=== PATIENT | female | born 1980 | race Caucasian/White ===

== ENCOUNTER 2020-05-02 19:33 | Emergency (ER) | payer MEDICAID ==
[~2020-05-02] VITALS: Ht 165.1 cm; Wt 108.9 kg
[2020-05-02 20:25] LABS: Basophils # (auto) 0.1 10 ^3/uL (0-0.2); Basophils % (auto) 0.9 % (0.0-2.0); Eosinophils # (auto) 0.1 10 ^3/uL (0-0.8); Eosinophils % (auto) 1.3 % (0.0-7.0); Hematocrit 42.7 % (36.0-46.0); Neutrophils # (auto) 4.7 10 ^3/uL (1.6-8.6); Nucleated Red Blood Cells % 0.1 %; Red Blood Cells 3.82 10^6/uL (4.0-5.20)
[2020-05-02 20:27] LABS: Hemoglobin 15.2 g/dL (12.2-16.2); Lymphocytes # (auto) 2.5 10 ^3/uL (0.4-5.4); Lymphocytes % (auto) 31.9 % (10.0-50.0); Mean Corpuscular Hemoglobin 39.6 pg (28.0-32.0); Mean Corpuscular Hgb Conc. 35.5 g/dL (32.0-36.0); Mean Corpuscular Volume 111.5 fL (80.0-100.0); Monocytes # (auto) 0.6 10 ^3/uL (0-1.3); Monocytes % (auto) 6.9 % (0.0-12.0); Platelet Count (auto) 269 10^3/uL (140-450); Red Cell Distribution Width 14.2 % (11.8-14.3)
[2020-05-02 20:37] LABS: INR 1.03 (0.9-1.15); Partial Thromboplastin Time 26.7 sec (23.0-31.2)
[2020-05-02 20:40] LABS: Albumin 3.9 g/dL (3.4-5.0); BUN/Creatinine Ratio 10.5; Calcium 9.1 mg/dL (8.5-10.1); Potassium 3.9 mmol/L (3.5-5.1)
[2020-05-02 20:43] LABS: Bilirubin, Total 0.4 mg/dL (0.2-1.0); Total Protein 8.4 g/dL (6.4-8.2)
[2020-05-03 04:00] VITALS: BP 100/73
[2020-05-03 04:18] LABS: Urine Bacteria NONE SEEN /hpf (None Seen); Urine Blood 3+ /uL (Negative); Urine Mucus FEW (None Seen); Urine Specific Gravity 1.031 (1.001-1.035); Urine WBC 500 /hpf (0 - 5)
== END 2020-05-03 04:55 | disposition home or self-care (01) ==
LOC: ER 19:33
DX: N93.8 Other specified abnormal uterine and vaginal bleeding (principal)
CPT/HCPCS: 36415; 76856; 80053; 81001; 84702; 85025; 85610; 85730; 86850; 86900; 86901

== ENCOUNTER 2021-04-13 14:55 | Inpatient (IN) | payer MEDICAID, OTHER ==
[~2021-04-13] VITALS: Ht 165.1 cm; Wt 90.4 kg
[2021-04-13 16:00] LABS: Basophils # (auto) 0.1 10 ^3/uL (0-0.2); Eosinophils # (auto) 0 10 ^3/uL (0-0.8); Lymphocytes # (auto) 1.7 10 ^3/uL (0.4-5.4); Mean Corpuscular Hemoglobin 45.1 pg (28.0-32.0); Monocytes # (auto) 0.5 10 ^3/uL (0-1.3); Neutrophils # (auto) 7.5 10 ^3/uL (1.6-8.6); Nucleated Red Blood Cells % 0.1 %; White Blood Cell 9.9 10^3/uL (4.4-10.8)
[2021-04-13 16:03] LABS: Basophils % (auto) 1.5 % (0.0-2.0); Eosinophils % (auto) 0.2 % (0.0-7.0); Hematocrit 28.9 % (36.0-46.0); Hemoglobin 10.1 g/dL (12.2-16.2); Lymphocytes % (auto) 16.9 % (10.0-50.0); Mean Corpuscular Hgb Conc. 34.9 g/dL (32.0-36.0); Mean Corpuscular Volume 129.4 fL (80.0-100.0); Monocytes % (auto) 5.5 % (0.0-12.0); Neutrophils % (auto) 75.9 % (37.0-80.0); Red Blood Cells 2.23 10^6/uL (4.0-5.20); Red Cell Distribution Width 19.2 % (11.8-14.3)
[2021-04-13 16:21] LABS: Albumin 2.3 g/dL (3.4-5.0); BUN/Creatinine Ratio 5.3; Calcium 8.7 mg/dL (8.5-10.1)
[2021-04-13 16:23] LABS: Lactic Acid w/Reflex 3.9 mmol/L (0.4-2.0)
[2021-04-13 16:25] LABS: Bilirubin, Total 10.7 mg/dL (0.2-1.0); Total Protein 8.1 g/dL (6.4-8.2)
[2021-04-13 16:26] LABS: INR 1.63 (0.9-1.15); Partial Thromboplastin Time 31.9 sec (23.6-33.0)
[2021-04-13 16:51] LABS: Potassium 2.8 mmol/L (3.5-5.1)
[2021-04-13] MEDS ORDERED: POTASSIUM EFFERVESENT TAB 25 MEQ PO ONE (17:00)
[2021-04-13] MEDS ORDERED: ENOXAPARIN SOD 100 MG/1 ML SYRINGE SC ONE (17:00)
[2021-04-13 22:10] LABS: Urine Bacteria MANY /hpf (None Seen); Urine Blood TRACE /uL (Negative); Urine Mucus FEW (None Seen); Urine Specific Gravity 1.022 (1.001-1.035); Urine WBC 18 /hpf (0 - 5)
[2021-04-14] MEDS ORDERED: TEMAZEPAM 15 MG CAP PO PRN (03:45)
[2021-04-14] MEDS ORDERED: ONDANSETRON HCL 4 MG/2 ML VIAL IV PRN (03:45)
[2021-04-14 04:42] LABS: Calcium 8.6 mg/dL (8.5-10.1)
[2021-04-14] MEDS: cefTRIAXone 1GM/50ML D5W 50 ML IV SCH (04:58)
[2021-04-14 05:06] LABS: Potassium 2.8 mmol/L (3.5-5.1)
[2021-04-14] MEDS ORDERED: POTASSIUM CHL 20 Meq TABLET PO ONE ×2 (06:00→18:45)
[2021-04-14] MEDS: PANTOPRAZOLE 40 MG TAB PO SCH (08:30)
[2021-04-14] MEDS ORDERED: ASPirin 81 mg TAB PO SCH (10:00)
[2021-04-14] MEDS: MULTIPLE VITAMIN TAB PO SCH (11:45)
[2021-04-14] MEDS: LORazepam 2MG/ML-1ML VIAL IV PRN ×2 (12:25→20:47)
[2021-04-14] MEDS: chlordiazePOXIDE HCL 25 MG CAP PO SCH ×3 (12:25→23:44)
[2021-04-14] MEDS: THIAMINE HCL 100 MG TAB PO SCH (12:25)
[2021-04-14 14:31] LABS: Potassium 2.9 mmol/L (3.5-5.1)
[2021-04-14] MEDS ORDERED: POTASSIUM CHLORIDE 20 MEQ, LIDOCAINE 1% (LOCAL ANESTH.) 2 ML in SODIUM CHL 0.9% 100 ML IV ONE (14:45)
[2021-04-14] MEDS ORDERED: POTASSIUM EFFERVESENT TAB 25 MEQ PO ONE (15:15)
[2021-04-14] MEDS ORDERED: FOLIC ACID 1 MG TAB PO ONE (18:45)
[2021-04-14] MEDS ORDERED: MAGNESIUM OXIDE 400 MG TAB PO ONE (18:45)
[2021-04-14 20:00] VITALS: BP 107/63
[2021-04-14] MEDS: SOD CHL 0.9%/ KCL 40MEQ 1,000 ML IV SCH (20:24)
[2021-04-14 21:33] VITALS: BP 107/63
[2021-04-14] MEDS: PROPRANOLOL HCL 20 MG TAB PO SCH (21:47)
[2021-04-15 04:51] VITALS: BP 96/54
[2021-04-15] MEDS: SOD CHL 0.9%/ KCL 40MEQ 1,000 ML IV SCH ×2 (05:20→11:18)
[2021-04-15] MEDS: chlordiazePOXIDE HCL 25 MG CAP PO SCH ×3 (05:49→17:14)
[2021-04-15 07:37] LABS: Basophils # (auto) 0.1 10 ^3/uL (0-0.2); Eosinophils # (auto) 0.1 10 ^3/uL (0-0.8); Eosinophils % (auto) 0.7 % (0.0-7.0); Lymphocytes # (auto) 1.8 10 ^3/uL (0.4-5.4); Monocytes # (auto) 0.6 10 ^3/uL (0-1.3); White Blood Cell 7.7 10^3/uL (4.4-10.8)
[2021-04-15 07:40] LABS: Basophils % (auto) 0.9 % (0.0-2.0); Hematocrit 23.7 % (36.0-46.0); Hemoglobin 8.3 g/dL (12.2-16.2); Mean Corpuscular Hemoglobin 46.7 pg (28.0-32.0); Mean Corpuscular Hgb Conc. 35.2 g/dL (32.0-36.0); Mean Corpuscular Volume 132.8 fL (80.0-100.0); Monocytes % (auto) 7.9 % (0.0-12.0); Neutrophils # (auto) 5.2 10 ^3/uL (1.6-8.6); Neutrophils % (auto) 67.5 % (37.0-80.0); Nucleated Red Blood Cells % 0.2 %; Red Blood Cells 1.78 10^6/uL (4.0-5.20); Red Cell Distribution Width 19.6 % (11.8-14.3)
[2021-04-15 07:49] LABS: INR 1.71 (0.9-1.15); Partial Thromboplastin Time 33.9 sec (23.6-33.0)
[2021-04-15 07:54] LABS: Calcium 8.3 mg/dL (8.5-10.1); Potassium 3.8 mmol/L (3.5-5.1)
[2021-04-15 07:58] LABS: Lactic Acid w/Reflex 2.2 mmol/L (0.4-2.0)
[2021-04-15 08:06] LABS: BUN/Creatinine Ratio 12.1; Bilirubin, Total 7.1 mg/dL (0.2-1.0); Total Protein 7.1 g/dL (6.4-8.2)
[2021-04-15] MEDS: FOLIC ACID 1 MG TAB PO SCH (08:50)
[2021-04-15] MEDS: cefTRIAXone 1GM/50ML D5W 50 ML IV SCH (08:50)
[2021-04-15] MEDS: SPIRONOLACTONE 25 MG TAB PO SCH (08:50)
[2021-04-15] MEDS: THIAMINE HCL 100 MG TAB PO SCH (08:50)
[2021-04-15] MEDS: PROPRANOLOL HCL 20 MG TAB PO SCH ×2 (08:51→22:00)
[2021-04-15] MEDS: PANTOPRAZOLE 40 MG TAB PO SCH (08:51)
[2021-04-15] MEDS: MULTIPLE VITAMIN TAB PO SCH (08:51)
[2021-04-15 09:00] VITALS: BP 108/62
[2021-04-15] MEDS: LORazepam 2MG/ML-1ML VIAL IV PRN ×2 (11:25→21:15)
[2021-04-15 13:00] VITALS: BP 98/62
[2021-04-15 17:00] VITALS: BP 92/49
[2021-04-15 21:39] VITALS: BP 90/54
[2021-04-16] MEDS: chlordiazePOXIDE HCL 25 MG CAP PO SCH ×3 (00:13→13:06)
[2021-04-16 05:00] VITALS: BP 101/55
[2021-04-16 07:10] LABS: INR 1.67 (0.9-1.15)
[2021-04-16 07:20] LABS: Calcium 8.2 mg/dL (8.5-10.1); Potassium 4.1 mmol/L (3.5-5.1)
[2021-04-16 07:34] LABS: BUN/Creatinine Ratio 9.4
[2021-04-16 09:00] VITALS: BP 96/52
[2021-04-16] MEDS: PROPRANOLOL HCL 20 MG TAB PO SCH (10:00)
[2021-04-16] MEDS: SPIRONOLACTONE 25 MG TAB PO SCH (10:00)
[2021-04-16] MEDS: FOLIC ACID 1 MG TAB PO SCH (10:10)
[2021-04-16] MEDS: SOD CHL 0.9%/ KCL 40MEQ 1,000 ML IV SCH (10:10)
[2021-04-16] MEDS: THIAMINE HCL 100 MG TAB PO SCH (10:10)
[2021-04-16] MEDS: MULTIPLE VITAMIN TAB PO SCH (10:10)
[2021-04-16] MEDS: cefTRIAXone 1GM/50ML D5W 50 ML IV SCH (10:10)
[2021-04-16] MEDS: PANTOPRAZOLE 40 MG TAB PO SCH (10:10)
[2021-04-16 13:00] VITALS: BP 101/54
[2021-04-16 14:25] VITALS: BP 96/52
== END 2021-04-16 15:27 | disposition home or self-care (01) | DRG 280 ==
LOC: ER 14:55 → OVERFLOW 04-14 03:38 → EAST 04-14 16:23 → TELE-EAST 04-14 16:26
PROVIDERS: ADMIT Nurse Practitioner; ATTEND Internal Medicine
DX: K70.10 Alcoholic hepatitis without ascites (principal); E43 Unspecified severe protein-calorie malnutrition; D68.9 Coagulation defect, unspecified; E87.2 Acidosis; K76.6 Portal hypertension; D64.9 Anemia, unspecified; E87.6 Hypokalemia; Z20.822 Contact with and (suspected) exposure to COVID-19; K74.60 Unspecified cirrhosis of liver; N39.0 Urinary tract infection, site not specified; E66.9 Obesity, unspecified; F10.10 Alcohol abuse, uncomplicated; Y90.9 Presence of alcohol in blood, level not specified; Z71.41 Alcohol abuse counseling and surveillance of alcoholic; Z68.31 Body mass index [BMI] 31.0-31.9, adult
CPT/HCPCS: 36415; 74176; 80048; 80053; 81001; 82105; 83605; 83690; 83735; 83880; 84132; 84484; 85025; 85610; 85730; 87040; 87086; 87426; 93306; 96365; 96372; G0378; J0696; J2001

== ENCOUNTER 2021-05-03 01:45 | Inpatient (IN) | payer OTHER ==
[~2021-05-03] VITALS: Ht 165.1 cm; Wt 90.7 kg
[2021-05-03 05:16] LABS: Eosinophils # (auto) 0 10 ^3/uL (0-0.8); Hematocrit 29.7 % (36.0-46.0); Monocytes # (auto) 0.2 10 ^3/uL (0-1.3); Red Blood Cells 2.52 10^6/uL (4.0-5.20)
[2021-05-03 05:19] LABS: Basophils # (auto) 0.1 10 ^3/uL (0-0.2); Basophils % (auto) 1.5 % (0.0-2.0); Eosinophils % (auto) 0.5 % (0.0-7.0); Hemoglobin 10.3 g/dL (12.2-16.2); Lymphocytes # (auto) 0.8 10 ^3/uL (0.4-5.4); Mean Corpuscular Hemoglobin 40.9 pg (28.0-32.0); Mean Corpuscular Hgb Conc. 34.7 g/dL (32.0-36.0); Monocytes % (auto) 4.9 % (0.0-12.0); Neutrophils # (auto) 3.8 10 ^3/uL (1.6-8.6); Neutrophils % (auto) 77.1 % (37.0-80.0); Red Cell Distribution Width 19.6 % (11.8-14.3)
[2021-05-03 05:32] LABS: Albumin 2.1 g/dL (3.4-5.0); Calcium 7.8 mg/dL (8.5-10.1); Potassium 3.2 mmol/L (3.5-5.1)
[2021-05-03 05:37] LABS: Bilirubin, Total 4.7 mg/dL (0.2-1.0); Total Protein 7.3 g/dL (6.4-8.2)
[2021-05-03 05:39] LABS: Lactic Acid w/Reflex 3.1 mmol/L (0.4-2.0)
[2021-05-03] MEDS ORDERED: HYDROcodone-ACET 5/325MG TAB PO PRN (08:30)
[2021-05-03] MEDS ORDERED: ACETAMINOPHEN 500 MG TAB PO PRN (08:30)
[2021-05-03] MEDS ORDERED: ALBUTEROL SULF HFA 90MCG INH 200DOSE IN PRN (08:30)
[2021-05-03] MEDS ORDERED: NITROGLYCERIN 0.4 MG SL TAB SL PRN (08:30)
[2021-05-03] MEDS ORDERED: ONDANSETRON HCL 4 MG/2 ML VIAL IV PRN (08:30)
[2021-05-03] MEDS ORDERED: POTASSIUM CHL 20MEQ/100ML 100 ML IV SCH ×2 (08:30→08:45)
[2021-05-03] MEDS ORDERED: MORPHINE SULFATE INJECTION 2 MG/ML SYRG IV PRN (08:30)
[2021-05-03] MEDS ORDERED: DOCUSATE SOD 100 MG CAP PO PRN (08:30)
[2021-05-03] MEDS ORDERED: D5W/SOD CHLO 0.9% 1,000 ML IV SCH (08:30)
[2021-05-03] MEDS ORDERED: FUROSEMIDE 40 MG/4 ML VIAL IV ONE (08:45)
[2021-05-03] MEDS ORDERED: REMDESIVIR PER PHARMACY 0 ML IV SCH (09:00)
[2021-05-03] MEDS ORDERED: OCTREOTIDE ACETATE 500 MCG in SODIUM CHL 0.9% 99 ML IV SCH (09:00)
[2021-05-03] MEDS ORDERED: cefTRIAXone 1GM/50ML D5W 50 ML IV SCH (09:00)
[2021-05-03] MEDS ORDERED: OCTREOTIDE ACETATE 100 MCG in SODIUM CHL 0.9% 50 ML IV ONE (09:00)
[2021-05-03 09:20] VITALS: BP 114/70
[2021-05-03] MEDS ORDERED: DexAMETHasone SOD PHOS 10MG/1ML VIAL INJ IV SCH (10:00)
[2021-05-03] MEDS ORDERED: MULTIPLE VITAMIN TAB PO SCH (10:00)
[2021-05-03] MEDS ORDERED: ASCORBIC ACID 1,000 MG TAB PO SCH (10:00)
[2021-05-03] MEDS ORDERED: ZINC SULFATE 220mg CAP or TAB PO SCH (10:00)
[2021-05-03] MEDS ORDERED: BUDESONIDE (INHALATION) 180 MCG IH IN SCH (10:00)
[2021-05-03] MEDS ORDERED: FAMOTIDINE (10MG/ML) 2ML VL IV SCH (10:00)
[2021-05-03] MEDS ORDERED: CHOLECALCIFEROL (VITD3) 2,000 UNIT CAP/TAB PO SCH (10:00)
[2021-05-03] MEDS ORDERED: ENOXAPARIN SOD 40 MG/0.4 ML SYRINGE SC SCH (10:00)
[2021-05-03] MEDS ORDERED: PANTOPRAZOLE 40 MG/10 ML VIAL INJ IV SCH (10:00)
[2021-05-03] MEDS ORDERED: AZITHROMYCIN 500MG/ 250ML 250 ML IV SCH (10:00)
[2021-05-03 10:57] LABS: Albumin 1.8 g/dL (3.4-5.0); Calcium 7.7 mg/dL (8.5-10.1); Magnesium 2.4 mg/dL (1.6-2.6); Potassium 3.3 mmol/L (3.5-5.1)
[2021-05-03 11:02] LABS: BUN/Creatinine Ratio 8.5; Bilirubin, Total 4.1 mg/dL (0.2-1.0); Total Protein 6.8 g/dL (6.4-8.2)
[2021-05-03 11:19] LABS: INR 1.71 (0.9-1.15); Partial Thromboplastin Time 41.9 sec (23.6-33.0)
[2021-05-03 11:20] LABS: Basophils # (auto) 0 10 ^3/uL (0-0.2); Basophils % (auto) 0.6 % (0.0-2.0); Eosinophils # (auto) 0 10 ^3/uL (0-0.8); Eosinophils % (auto) 0.2 % (0.0-7.0); Hematocrit 27.9 % (36.0-46.0); Hemoglobin 9.7 g/dL (12.2-16.2); Lymphocytes # (auto) 0.6 10 ^3/uL (0.4-5.4); Lymphocytes % (auto) 15.1 % (10.0-50.0); Mean Corpuscular Hgb Conc. 34.7 g/dL (32.0-36.0); Mean Corpuscular Volume 118.2 fL (80.0-100.0); Monocytes # (auto) 0.2 10 ^3/uL (0-1.3); Monocytes % (auto) 4.8 % (0.0-12.0); Neutrophils # (auto) 3.3 10 ^3/uL (1.6-8.6); Neutrophils % (auto) 79.3 % (37.0-80.0); Nucleated Red Blood Cells % 0.1 %; Red Blood Cells 2.36 10^6/uL (4.0-5.20); Red Cell Distribution Width 19.7 % (11.8-14.3); White Blood Cell 4.2 10^3/uL (4.4-10.8)
[2021-05-03] MEDS ORDERED: REMDESIVIR 200 MG in NS 210ml LOADING DOSE ADULT IV ONE (12:00)
[2021-05-03] MEDS ORDERED: POTASSIUM CHLORIDE 40 MEQ, LIDOCAINE 1% (LOCAL ANESTH.) 4 ML in SODIUM CHL 0.9% 250 ML IV ONE (14:30)
[2021-05-04] MEDS ORDERED: REMDESIVIR 100mg 100 MG in SODIUM CHL 0.9% 230 ML IV SCH (15:00)
== END 2021-05-03 10:19 | disposition left against medical advice (07) | DRG 137 ==
LOC: ER 01:45 → TELE 08:29
PROVIDERS: ADMIT Internal Medicine; ATTEND Internal Medicine
PROC: XW033E5 Introduction of Remdesivir Anti-infective into Peripheral Vein, Percutaneous Approach, New Technology Group 5 (ICD-10-PCS; principal; 2021-05-03)
DX: U07.1 COVID-19 (principal); J96.00 Acute respiratory failure, unspecified whether with hypoxia or hypercapnia; J12.82 Pneumonia due to coronavirus disease 2019; K92.2 Gastrointestinal hemorrhage, unspecified; I21.A1 Myocardial infarction type 2; D69.6 Thrombocytopenia, unspecified; K70.9 Alcoholic liver disease, unspecified; Z53.29 Procedure and treatment not carried out because of patient's decision for other reasons; K74.60 Unspecified cirrhosis of liver; F10.10 Alcohol abuse, uncomplicated; Z98.51 Tubal ligation status
CPT/HCPCS: 36415; 71045; 80053; 83605; 83735; 83880; 84484; 84702; 85025; 85379; 85610; 85730; 86850; 86900; 86901; 87040; 87426; 93005; G0378; J2001